=== PATIENT | female | born 1990 | race Caucasian/White ===

== ENCOUNTER → 2022-07-19 13:55 | Outpatient (CLI) | payer OTHER, SELFPAY ==
--- NOTE | 2022-07-19 14:08 | DI.RAD.S_ITS ---
PROCEDURE: XR SACRUM COCCYX MIN 2V INDICATIONS: fell 4 wks ago TECHNIQUE: 3 views of the sacrum and coccyx acquired. COMPARISON: None. FINDINGS: Bones: Transverse fracture through the fracture 2nd coccygeal element with softening the fracture line mild anterior displacement Soft tissues: Visualized bowel gas pattern is normal. No suspicious soft tissue densities. IMPRESSION: Healing transverse coccygeal fracture Approved by: Alban Owens M.D. on 07/19/2022 at 14:33
== END ==
PROVIDERS: PCP Family Medicine; Referring Provider Family Medicine; Visit Provider Family Medicine
DX: S32.2XXA Fracture of coccyx, initial encounter for closed fracture (principal); S30.0XXA Contusion of lower back and pelvis, initial encounter; W19.XXXA Unspecified fall, initial encounter
CPT/HCPCS: 72220